=== PATIENT | male | born 1975 | race Caucasian/White ===

== ENCOUNTER 2017-01-11 23:45 | Emergency (ER) | payer OTHER ==
[2017-01-11] MEDS ORDERED: GLUCAGEN ONE (23:58)
[2017-01-12 00:03] VITALS: BP 129/88; BMI 29.8
[2017-01-12] MEDS ORDERED: GLUCAGEN IVP ONE (00:04)
--- NOTE | 2017-01-12 00:25 | RAD ---
Soft tissue neck-two views Indication: Choking. Findings: The epiglottis is normal. Prevertebral soft tissues are normal. There is mild disk degener ative changes C5-C6. Larynx appears normal. Upper airway is normal. Impression: Relatively normal soft tissue neck without large foreign body identified. Reported By:
[2017-01-12] MEDS ORDERED: DEMEROL INJ IVP ONE (00:31)
[2017-01-12] MEDS ORDERED: ZOFRAN INJ 4 MG VIAL IVP ONE ×2 (00:32→06:04)
[2017-01-12] MEDS ORDERED: ZOFRAN INJ 4 MG VIAL ONE ×2 (00:34→06:42)
[2017-01-12] MEDS ORDERED: DEMEROL INJ ONE (00:34)
[2017-01-12] MEDS ORDERED: PEPCID 20 MG IV PREMIX* 20 MG/50 ML BAG IV ONE ×2 (02:07→02:08)
[2017-01-12] MEDS ORDERED: PHENERGAN INJ 25 MG IV ONE (02:07)
[2017-01-12] MEDS ORDERED: DILAUDID INJ ONE ×2 (02:08→06:42)
[2017-01-12] MEDS ORDERED: DILAUDID INJ IVP ONE (02:08)
[2017-01-12] MEDS ORDERED: PHENERGAN INJ 25 MG ONE (02:08)
--- NOTE | 2017-01-12 03:23 | DR.FB ---
HPI - Time Seen Time seen: 00:10 - PCP Primary Care Physician: Stephane - HPI Comment HPI Comment: FOREIGN BODY IN ESOPHAGUS. NAUSEA AND VOMITING. CUBED STAKE GOT STUCK IN LOWER ESOPHGUS TONIGHT. NOTHING IS GOING DOWN,PATIENT SPITING HIS SALIVA OUT. HAPPEN 19:00 PM TONIGHT. - Complaint Chief Complaint:: Patient stated he was eating cube steak around 7PM tonight and it got stuck. Patient states he is unable to swallow anything now. Patient complains of pain to his chest and his head. 01/06 - Reviewed Nurses Notes Review: Yes - Source History Provided: Patient - Mode of Arrival Mode of Arrival: Ambulatory - Location Location: [facility] - Timing Onset of Chief Complaint: 01/12/17 - Context Context: Ingestion Foreign body: Other (STEAK) Removal: Was not attempted Last tetanus: UTD - Severity Pain Severity: Moderate Associated signs and symptoms: Moderate Ability to handle secretions: Difficult - Associated signs and symptoms Associated sign and symptoms: Pain PMH - PMH Past Medical History: No Past Surgical History: Yes Surgical History: Cholecystectomy Past Surgical History Comment: Hernia repair - Family History History of Family Medical Conditions: Yes Family Medical History: [place] - Social History Does patient currently use any type of tobacco product: No Have you used tobacco products in the last 12 months: No Type of Tobacco Use: None Does any household member use tobacco: No Alcohol Use: None Do you use any recreational Drugs:: No Lives With: Spouse, Family Lives Where: Home - infectious screening In the last 2 months have you had wt loss of >10#?: NO Have you had fever, night sweats or hemotysis?: No Have you traveled outside the country in the last 6 months?: No Isolation: Standard ROS - Review of Systems Constitutional: No Symptoms Reported Eyes: No Symptoms Reported ENTM: No Symptoms Reported Respiratoy: No Symptoms Reported, Productive Cough. negative: Non-Productive Cough, Short of Breath, Wheezing, Hemoptysis Cardiovascular: Chest Pain Gastrointestinal/Abdominal: Abdominal Pain (EPIGASTRIC AREA.), Nausea, Vomiting. negative: Constipation, Diarrhea Genitourinary: No Symptoms Reported. negative: Dysuria, Frequency, Hematuria Neurological: No Symptoms Reported PE - Vital Signs Vitals: Temperature 97.7 F Pulse Rate 77 Respiratory Rate 20 Blood Pressure 129/88 O2 Sat by Pulse Oximetry 97 - General Limitations: No Limitations General Appearance: Alert - Eyes Eye exam: Normal Appearance - ENT ENT Exam: Normal External Ear Exam External Ear Exam: Normal External Inspection TM/Canal Exam: Bilateral Normal Nose Exam: Normal Nose Exam Mouth Exam: Normal Inspection Throat Exam: Normal Inspection - Neck Neck Exam: Trachea Midline. negative: Tenderness, Meningismus, Lymphadenopathy - Chest Chest Inspection: Symmetric Chest Wall Rise - Respiratory Respiratory Exam: Normal Lung Sounds Bilat Respiratory Exam: Bilateral Clear to Auscultation - Cardiovascular Cardiovascular Exam: Regular Rate, Normal Rhythm, Normal Heart Sounds - Abdominal Exam Abdominal Exam: Normal Bowel Sounds, Soft, Tenderness Abdominal Tenderness: Epigastrium, Moderate - Rectal Rectal Exam: Deferred - Genitalia Genitalia: Deferred - Neurologic Neurological Exam: Alert, Oriented X3 - Psychiatric Psychiatric Exam: Normal Affect, Normal Mood - Skin Skin Exam: Normal Color MDM - Additional information Obtained Additional Information Obtained: Family - Differential Diagnosis Differential Diagnosis: Esophageal obstruction, Foreign body Course - Treatment Treatment: NAUSEA AND PAIN MED GIVEN IN ED. WILL D/C TO GO TO [facility] IN [facility]. - Consultation Consultation Comments: DISCUSS PATIENT WITH DR. HAMILTON. HE WILL SEE PATIENT IN [facility] FOR REMOVAL OF ESOPHAGEAL FB. - Education/Counseling Education/Counseling: Patient, Education Educated On: Diagnosis, Needs for Follow Up ROR - XRAY XRAY Interpreted by: Radiologist XRAY Findings: REPORT NOTED - Diagnosis Discharge Problem: Esophageal foreign body Qualifiers: Encounter type: initial encounter Qualified Code(s): T18.108A - Unspecified foreign body in esophagus causing other injury, initial encounter Vomiting Qualifiers: Vomiting type: unspecified Vomiting Intractability: non-intractable Nausea presence: with nausea Qualified Code(s): R11.2 - Nausea with vomiting, unspecified - Discharge Plan Disposition: XF [facility] Condition: Stable - Follow ups/Referrals Follow ups/Referrals: Sloan Calderón [Primary Care Provider] - 3 days - Instructions Instructions: Swallowed Foreign Body, Adult, [id number] Additional Instructions: RETURN TO ED IF WORSE.
[2017-01-12] MEDS ORDERED: DILAUDID INJ IVP PRN (06:04)
== END 2017-01-12 08:00 | disposition short-term general hospital (02) ==
LOC: ER 23:45
DX: T18.108A Unspecified foreign body in esophagus causing other injury, initial encounter (principal); R11.2 Nausea with vomiting, unspecified
CPT/HCPCS: 70360; 96374; 96375; 99282; 99283; A4222; S0028; J1170; J1610; J2175; J2405; J2550

== ENCOUNTER → 2017-11-15 | Outpatient (CLI) | payer OTHER ==
--- NOTE | 2017-11-15 12:12 | RAD ---
HISTORY: 42-year-old male with neck pain radiating into the shoulders. Study: Three-view cervical spine. Comparison: None. Findings: Degenerative retrolisthesis C5 on C6 with loss of disc space and uncovertebral joint hypertrophy. Th e central canal appears patent without posterior element abnormality. No prevertebral soft tissue sw elling can be identified. The odontoid appears intact. The lateral masses of C1 align with the body of C2. No acute fracture or malalignment. Lung apices are clear. Evidence of prior reconstruction bi lateral maxilla. IMPRESSION: 1. Degenerative changes most pronounced at C5-C6 as described, recommend nonemergent common outpatien t MR cervical spine for further evaluation. Reported By:
--- NOTE | 2017-11-15 12:15 | RAD ---
KNEE RADIOGRAPHS CLINICAL HISTORY: 42-year-old male with severe left knee pain. COMPARISON: None. FINDINGS: 3 views of the left knee demonstrate no acute fracture or malalignment. There is no suprap atellar joint effusion. The medial and lateral joint spaces are maintained. The mineralization is no rmal. There is no aggressive bone lesion or abnormal periosteal reaction. There is no soft tissue c alcification or gas. IMPRESSION: No radiographic evidence for acute fracture or osseous abnormality of the left knee. Reported By:
== END ==
LOC: RAD 11:32
PROVIDERS: ATTEND Nurse Practitioner Family
DX: M25.562 Pain in left knee (principal); M54.12 Radiculopathy, cervical region
CPT/HCPCS: 72040; 73560

== ENCOUNTER → 2017-11-22 | Outpatient (CLI) | payer OTHER ==
--- NOTE | 2017-11-22 11:18 | MRI ---
MR left knee without contrast Indication: Pain and swelling Technique: Multiplanar multi sequence imaging through the left knee without contrast Findings: Bone marrow signal is normal. Neurovascular structures are intact. The MCL cut and lateral collateral ligamentous complex is intact. The ACL and PCL are intact. The medial meniscus is normal. There is complex tear of the lateral meniscus, bucket-handle type with a flipped fragment anteriorly causing the double delta sign seen on sagittal image 26. Centrally flipped fragment is seen on sagitt al image 20. This centrally flipped fragment is also seen on coronal image 21 There is small joint effusion. There is minimal quadriceps tendinosis. Patellofemoral cartilage is in tact. Small popliteal cyst noted. Femorotibial cartilage is relatively intact with minimal chondromal acia over the lateral tibial plateau. Impression: 1. Bucket-handle tear lateral meniscus with fragment flipped anteriorly and centrally from the color specialist ior horn and body, horizontal oblique tear. 2. Small joint effusion, minimal lateral tibial plateau chondromalacia and other findings as above. Reported By:
== END | disposition home or self-care (01) ==
LOC: RAD 09:49
PROVIDERS: ATTEND Nurse Practitioner Family
DX: M25.562 Pain in left knee (principal); S83.252A Bucket-handle tear of lateral meniscus, current injury, left knee, initial encounter; X58.XXXA Exposure to other specified factors, initial encounter; M25.462 Effusion, left knee; M94.262 Chondromalacia, left knee
CPT/HCPCS: 73721